=== PATIENT | male | born 1990 | race Two or more races ===

== ENCOUNTER → 2024-08-07 | Outpatient (CLI) | payer OTHER, SELFPAY ==
--- NOTE | 2024-08-07 09:56 | XR_ITS ---
Examination: Bilateral wrists 6 views TECHNIQUE: AP oblique lateral each wrist total 6 views Date and time of exam: August 07, 2024 1038 hours INDICATIONS: Bilateral wrist pain 6 years FINDINGS: Adequate bone density No fracture or dislocation involving either wrist Bilateral mild narrowing radiocarpal joints Bilateral early osteoarthritis first carpometacarpal joints No avascular necrosis IMPRESSION: Mild osteoarthritis bilaterally
--- NOTE | 2024-08-07 09:57 | XR_ITS ---
Examination: Bilateral hands, 6 views. Technique: AP, Oblique, Lateral each hand total 6 views Date and time of exam: March 07, 2024 1038 hours INDICATIONS: Bilateral hand pain beginning 6 years ago Findings: Mild narrowing radiocarpal joints bilaterally Mild bilateral osteoarthritis first carpometacarpal joints No fracture or dislocation involving either hand or wrist No cortical bone destruction or erosive arthritis Minimal osteoarthritis distal interphalangeal joints second through fifth digits bilaterally IMPRESSION: Mild osteoarthritis
== END | disposition home or self-care (01) ==
PROVIDERS: PCP Nurse Practitioner Family
DX: M19.032 Primary osteoarthritis, left wrist (principal); M19.031 Primary osteoarthritis, right wrist; M19.042 Primary osteoarthritis, left hand; M19.041 Primary osteoarthritis, right hand
CPT/HCPCS: 73110; 73130

== ENCOUNTER → 2024-09-22 | Outpatient (CLI) | payer OTHER, SELFPAY ==
[2024-09-22 10:04] LABS: Basophils % (Auto) 0 % (0-2.5); Eosinophils # (Auto) 0.1 Thou/mm3 (0.0-0.5); Eosinophils % (Auto) 2 % (0-10); Hematocrit 43.2 % (41.0-53.0); Hemoglobin 14.3 g/dL (13.5-16.0); Immature Granulocytes % (Auto) 0 % (0-0); Immature Granulocytes Auto 0.01 Thou/mm3 (0.00-0.00); Lymphocytes # (Auto) 1.7 Thou/mm3 (1.0-4.8); Lymphocytes % (Auto) 29 % (10-50); Mean Corpuscular HGB Conc 33.1 g/dl (31.0-37.0); Mean Corpuscular Hemoglobin 29.9 pg (25.0-35.0); Mean Corpuscular Volume 90 fL (80-100); Monocytes # (Auto) 0.4 Thou/mm3 (0.0-0.8); Monocytes % (Auto) 6 % (0-12); Neutrophils # (Auto) 3.6 Thou/mm3 (1.8-7.7); Neutrophils % (Auto) 62 % (37-80); Nucleated Red Blood Cell % 0 /100 WBC (0); Platelet Count 249 Thou/mm3 (140-440); RDW Standard Deviation 41.9 fL (35.1-43.9); Red Blood Count 4.78 Miln/mm3 (4.50-5.90); White Blood Count 5.8 Thou/mm3 (3.8-10.6)
[2024-09-22 10:14] LABS: Glucose Estimated Average 105 mg/dL (80-131); Hemoglobin A1C 5.3 % Hgb (4.8-6.0)
[2024-09-22 11:22] LABS: Alanine Aminotransferase 24 U/L (10-49); Albumin, Serum 4.5 gm/dL (3.5-5.0); Albumin/Globulin Ratio 1.8 (1.2-2.2); Alkaline Phosphatase 90 U/L (46-116); Anion Gap 8 (7-16); Aspartate Amino Transferase 13 U/L (0-34); BUN/Creatinine Ratio 18 Ratio (12-20); Bilirubin,Total 0.7 mg/dL (0.3-1.2); Blood Urea Nitrogen 14 mg/dL (9-23); Calcium 9.4 mg/dL (8.3-10.6); Calcium (Corrected) 9.4 mg/dL (8.5-10.1); Carbon Dioxide 26.1 mMol/L (20.0-31.0); Cardiac Risk Estimate 4.6 RATIO (4.0-6.7); Chloride 104 mMol/L (98-107); Cholesterol 231 mg/dL (132-200); Creatinine (Component) 0.8 mg/dL (0.6-1.3); Free T4 (Free Thyroxine) 1.37 ng/dL (0.89-1.76); Globulin 2.5 gm/dL (2.3-3.5); Glucose 95 mg/dL (74-106); HDL Cholesterol 50 mg/dL (40-60); LDL Cholesterol,Calculated 160 mg/dL (0-130); Osmolality,Calculated 276 (275-295); Potassium 4.4 mMol/L (3.4-5.1); Sodium 138 mMol/L (136-145); Thyroid Stimulating Hormone 1.41 uIU/mL (0.55-4.78); Triglycerides 105 mg/dL (30-150); eGFR > 60 See Note
[2024-09-22 12:03] LABS: Hepatitis C Antibody Non Reactive (Non React)
== END | disposition home or self-care (01) ==
PROVIDERS: PCP Nurse Practitioner Family; Referring Provider Nurse Practitioner Family; Visit Provider Nurse Practitioner Family
DX: E78.5 Hyperlipidemia, unspecified (principal); Z13.1 Encounter for screening for diabetes mellitus; Z13.29 Encounter for screening for other suspected endocrine disorder; Z11.59 Encounter for screening for other viral diseases
CPT/HCPCS: 36415; 80053; 80061; 83036; 84439; 84443; 85025; 86803

== ENCOUNTER 2024-10-23 08:30 | Outpatient (RCR) | payer OTHER, SELFPAY ==
--- NOTE | 2024-10-15 15:02 | PT.OIERPT ---
PT OP Initial Eval Patient Information Outpatient Physical Therapy Treatment Date: 10/15/24 Visit Reasons: Bilateral carpal tunnel syndrome Medical Diagnosis: Bilateral carpal tunnel Treatment Dx #1: Right Hand Pain Treatment Dx #2: Left Hand Pain Start of Care: 10/15/24 Date of Onset: 5 years ago Smoking Status Smoking Status: Never smoker Initial Assessment Subjective: Pt is a 33 y/o male reports of chronic CTS R>L since 5 years ago. Pt mentioned nerve conduction test confirmed moderate CTS on the right and mild on the left. Pt has limitation with work duties, chores, gripping, lifting, and performing recreational activities. Pt stated that night splint and cortisone shots has helped so far. 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 Pt will attempt physical therapy if pain persist Pt will be refer back to provider for further consultation. 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
--- NOTE | 2024-10-21 09:07 | PT.ODAYNRPT ---
PT Outpatient Daily Note OP Daily Note Outpatient Physical Therapy Treatment Date: 10/21/24 Visit Reasons: Bilateral carpal tunnel syndrome Subjective: Pt reports worsening symptoms with activity. Objective: Please see flow sheet for ther ex list. Assessment: Pt demonstrates aggravating symptoms towards the end of session, requires short rest breaks in between reps. Plan: Continue with pOC. Length of Time (minutes) of Treatment: 30 Minutes Procedure Charges Therapeutic Exercise 30 minutes: Yes
--- NOTE | 2024-10-23 09:03 | PT.ODAYNRPT ---
PT Outpatient Daily Note OP Daily Note Outpatient Physical Therapy Treatment Date: 10/23/24 Visit Reasons: Bilateral carpal tunnel syndrome Subjective: No new concerns or complaints. Objective: Please see flow sheet for ther ex list. Assessment: Pt responds to light hand ther ex with aggravating symptoms. Plan: Continue with POC. Length of Time (minutes) of Treatment: 30 Minutes Procedure Charges Therapeutic Exercise 30 minutes: Yes
== END 2024-10-24 23:59 | disposition home or self-care (01) ==
LOC: CPTX 08:30
PROVIDERS: PCP Family Medicine
DX: M79.641 Pain in right hand (principal); M79.642 Pain in left hand; R53.1 Weakness; G56.03 Carpal tunnel syndrome, bilateral upper limbs
CPT/HCPCS: 97110; 97162

== ENCOUNTER 2024-11-11 10:00 | Outpatient (RCR) | payer OTHER, SELFPAY ==
--- NOTE | 2024-10-28 10:48 | PT.ODAYNRPT ---
PT Outpatient Daily Note OP Daily Note Outpatient Physical Therapy Treatment Date: 10/28/24 Visit Reasons: bilateral carpal tunnel Subjective: Pt reports B hand pain and symptoms present and continue to be aggravated with activity. Objective: Please see flow sheet for ther ex list. Assessment: Pt continues to demonstrate poor activity tolerance due to worsening symptoms with light ther ex performed. Plan: Continue with pOC. Length of Time (minutes) of Treatment: 30 Minutes Procedure Charges Therapeutic Exercise 30 minutes: Yes
--- NOTE | 2024-11-11 10:36 | PT.ODAYNRPT ---
PT Outpatient Daily Note OP Daily Note Outpatient Physical Therapy Treatment Date: 11/11/24 Visit Reasons: bilateral carpal tunnel Subjective: No changes to report at this time, pt continues to have increase numbing/tingling weakness with activity. Objective: Please see flow sheet for ther ex list. Assessment: Poor progress in clinic, pt continues to have aggravating symptoms with light interventions. Plan: Continue with POC. Length of Time (minutes) of Treatment: 30 Minutes Procedure Charges Therapeutic Exercise 30 minutes: Yes
== END 2024-11-24 23:59 | disposition home or self-care (01) ==
LOC: CPTX 10:00
DX: M79.642 Pain in left hand (principal); M79.641 Pain in right hand; R53.1 Weakness; G56.03 Carpal tunnel syndrome, bilateral upper limbs
CPT/HCPCS: 97110

== ENCOUNTER 2024-11-16 03:02 | Emergency (ER) | payer OTHER, SELFPAY ==
[2024-11-16 03:03] VITALS: BMI 35.9
[2024-11-16 03:13] VITALS: BP 146/86; PULSE 87; RESP 20; TEMP 36.9; O2SAT 99
--- NOTE | 2024-11-16 03:19 | EDNOTE_ITS ---
ED Male Genitalurinary RME/HPI General Chief complaint: Urogenital-Male Stated complaint: URINE ORANGE Time Seen by Provider: 11/16/24 03:19 Arrival date/time: 11/16/24 03:02 RME / HPI RME / HPI Narrative: This section includes all my notes and documentations, including HPI, PE, and ED course. Sebastian Elias MD HPI: 33-year-old male here to be evaluated with a couple day history of very dark urine with possible orange hue. The day before yesterday, he had subjective fever and chills. No cough or congestion. Was evaluated by telehealth medical provider. He was diagnosed with influenza with normal diagnostic tests. Was prescribed Tamiflu and he started taking Tamiflu. Currently, no fever or chills. No cough or congestion. No back pain or flank pain or abdominal pain. No dysuria or urinary frequency. No other complaints. ROS: All negative except as documented in HPI. Physical Exam: General: Alert and oriented. No acute distress when remaining still. Eyes: Conjunctivae and lids clear. ENT: No nasal congestion. Neck: Supple. Heart: RRR. Lungs: No respiratory distress. Good air movement. No rhonchi, wheezing, rales. Abdomen: Soft and nontender. Normal bowel sounds. No distension. No rebound or guarding. Back: No CVA tenderness. Skin: Warm and dry. Neuro: Alert and oriented X 3. I reviewed all diagnostic test results. UA remarkable for very dark yellow color, 2+ ketones, and 2+ bilirubin. COVID/influenza negative. At this point, diagnoses include dehydration with UA with ketones and bilirubin. Recommended vigorous hydration and recheck with PCP in a week. Based on my best medical judgment, made decision no further evaluation or treatment indicated at this time. Patient understands and agrees to the discharge instructions customized and printed, see below. Discharge Instructions from Dr. Elias: 1. After evaluation, your urine shows severe dehydration. There is no microscopic blood in the urine. There is no infection in the urine. COVID and influenza negative. 2. Increase oral fluid and maintain clear urine.? If dark or yellow, increase oral fluid. 3. Some good choices are water (but not only water because it will cause electrolyte abnormalities), sports drinks like Gatorade (with less sugar content), coconut water, chicken stock, and other fluid with electrolytes (like Pedialyte). 4. See a private doctor in a week. Ask to recheck your microscopic urine. If still very dark, ask to help to make sure there is no serious underlying conditions, liver such as liver disease or blood disorder. 5. Seek immediate medical care with worsening or with any concerns. Sebastian Elias MD Related Data Previous Rx's ?Medication ?Instructions ?Recorded Promethazine Hcl/Dextromethorphan 1 tsp PO [id number] PRN COUGH OR 09/02/17 SYRUP * (PHENERGAN DM SYRUP *) CONGESTION #150 mL Allergies Allergy/AdvReac Type Severity Reaction Status Date / Time NKA* Allergy Uncoded 09/02/17 12:39 Course Quality Measures none Orders Category Date Time Status Bedside COVID-19 Antigen Test NOW Care 11/16/24 03:19 Completed Bedside Influenza A&B Antigen Test NOW Care 11/16/24 03:19 Completed UA, C/S IF [Urinalysis, C/S if Indicated] Stat Lab 11/16/24 03:20 Completed Vital Signs Vital signs: Vital Signs Temperature 98.5 F 11/16/24 03:13 Pulse Rate 87 11/16/24 03:13 Respiratory Rate 20 11/16/24 03:13 Blood Pressure 146/86 H 11/16/24 03:13 Pulse Oximetry (%) 99 11/16/24 03:13 Oxygen Delivery Method Room Air 11/16/24 03:13 Urogenital - Male Patient data External records reviewed:: [facility] previous records Clinical information provided by:: patient Social determinants that could affect healthcare access:: none Patient has the following chronic illnesses:: GERD How is presenting disease/condition affected by chronic disease/condition?: uneffected by Evaluation data The following diagnostics were reviewed and interpreted by me:: lab results Lab and/or radiology exams considered but not ordered:: None Interpretation Summary: UA remarkable for ketones and bilirubin Medications / Prescriptions Medications or Prescriptions considered but not ordered:: None Medication administrations:: None Consultations Consultation(s) initiated? (list below): No Diagnosis Urogenital Male Differential Diagnosis: urinary tract infection, acute retention of urine and other (Pyelonephritis, ureteral stone, hematuria) Most likely diagnosis given after review of the tests above:: Dehydration with ketones and bilirubin in urine Admission Indicated Admission indicated?: not indicated Explain why admission is indicated or not indicated:: There was no indication for admission. Admission Request Was there a request for admission?: No Disposition Plan Disposition Plan: Discharge Discharge Attestation Discharge Attestation: The patient and all family members were given an opportunity to ask questions and understood the discharge instructions. Discharge instructions specifically effects, indications for sooner follow up or return to the emergency department, and the expected course of current diagnosis. Patient condition: Stable Discharge Plan Plan Patient Disposition: HOME (Self Care) Prescriptions/Referrals Prescriptions/Med Rec: No Action Promethazine Hcl/Dextromethorphan SYRUP * (PHENERGAN DM SYRUP *) 473 ML syrup 1 tsp PO [id number] PRN (Reason: COUGH OR CONGESTION) Qty: 150 0RF Referrals: Temporary Provider,ED [Physician] - In 1 week Problem List Clinical Impression: Dehydration Patient/Caregiver Discharge Instructions Discharge Activity: activity as tolerated Education Materials: ED Dehydration (Adult) Additional Instructions: Discharge Instructions from Dr. Elias: 1. After evaluation, your urine shows severe dehydration. There is no microscopic blood in the urine. There is no infection in the urine. COVID and influenza negative. 2. Increase oral fluid and maintain clear urine.? If dark or yellow, increase oral fluid. 3. Some good choices are water (but not only water because it will cause electrolyte abnormalities), sports drinks like Gatorade (with less sugar content), coconut water, chicken stock, and other fluid with electrolytes (like Pedialyte). 4. See a private doctor in a week. Ask to recheck your microscopic urine. If still very dark, ask to help to make sure there is no serious underlying conditions, liver such as liver disease or blood disorder. 5. Seek immediate medical care with worsening or with any concerns. Print Language: Russian Stand Alone Forms: [employer] Award Info., Patient Portal Info Letter
[2024-11-16 03:33] LABS: Collection Type, Urine Clean Catch; RBC,Urine 0 /hpf (0-3); WBC,Urine 0 /hpf (0-5)
[2024-11-16 03:40] LABS: Bacteria,Urine Rare; Bilirubin,Urine 2+ (Negative); Blood,Urine Negative (Negative); Clarity,Urine Turbid (Clear/Hazy); Color,Urine Drk-Yellow (Lt Yel-Yel); Culture Indicated,Urine Not Indicated; Glucose, Urine Negative (Negative); Ketones,Urine 2+ (Negative); Leukocyte Esterase,Urine Negative (Negative); Nitrite,Urine Negative (Negative); PH,Urine 7.5 (5.0-7.0); Protein,Urine Trace (Neg - Trace); Specific Gravity,Urine 1.023 (1.001-1.035); Squamous Epithelial Cell,Urine 4 /hpf (0-5)
[2024-11-16 04:29] VITALS: RESP 18
== END 2024-11-16 04:29 | disposition home or self-care (01) ==
PROVIDERS: Emergency Provider Emergency Medicine; PCP Nurse Practitioner Family
DX: E86.0 Dehydration (principal)
CPT/HCPCS: 81001; 87400; 87811; 99283

== ENCOUNTER → 2024-11-17 | Outpatient (CLI) | payer OTHER, SELFPAY ==
[2024-11-17 11:58] LABS: Basophils % (Auto) 1 % (0-2.5); Eosinophils # (Auto) 0.1 Thou/mm3 (0.0-0.5); Eosinophils % (Auto) 4 % (0-10); Hematocrit 43.7 % (41.0-53.0); Immature Granulocytes % (Auto) 0 % (0-0); Immature Granulocytes Auto 0.01 Thou/mm3 (0.00-0.00); Lymphocytes # (Auto) 1.2 Thou/mm3 (1.0-4.8); Lymphocytes % (Auto) 36 % (10-50); Mean Corpuscular HGB Conc 34.3 g/dl (31.0-37.0); Mean Corpuscular Hemoglobin 30.3 pg (25.0-35.0); Mean Corpuscular Volume 88 fL (80-100); Monocytes # (Auto) 0.3 Thou/mm3 (0.0-0.8); Monocytes % (Auto) 8 % (0-12); Neutrophils # (Auto) 1.7 Thou/mm3 (1.8-7.7); Neutrophils % (Auto) 51 % (37-80); Nucleated Red Blood Cell % 0 /100 WBC (0); Platelet Count 218 Thou/mm3 (140-440); RDW Standard Deviation 40.9 fL (35.1-43.9); Red Blood Count 4.95 Miln/mm3 (4.50-5.90); White Blood Count 3.4 Thou/mm3 (3.8-10.6)
[2024-11-17 12:12] LABS: Alanine Aminotransferase 157 U/L (10-49); Albumin, Serum 4.3 gm/dL (3.5-5.0); Albumin/Globulin Ratio 1.7 (1.2-2.2); Alkaline Phosphatase 200 U/L (46-116); Anion Gap 11 (7-16); Aspartate Amino Transferase 70 U/L (0-34); BUN/Creatinine Ratio 13 Ratio (12-20); Blood Urea Nitrogen 10 mg/dL (9-23); Carbon Dioxide 24.3 mMol/L (20.0-31.0); Chloride 106 mMol/L (98-107); Creatinine (Component) 0.8 mg/dL (0.6-1.3); Globulin 2.6 gm/dL (2.3-3.5); Glucose 106 mg/dL (74-106); Osmolality,Calculated 280 (275-295); Sodium 141 mMol/L (136-145); Total Protein 6.9 gm/dL (5.7-8.2); eGFR > 60 See Note
== END | disposition home or self-care (01) ==
LOC: COPL 10:56
PROVIDERS: PCP Family Medicine; Referring Provider Nurse Practitioner Family; Visit Provider Nurse Practitioner Family
DX: E78.5 Hyperlipidemia, unspecified (principal)
CPT/HCPCS: 36415; 80053; 85025

== ENCOUNTER → 2024-11-20 | Outpatient (CLI) | payer OTHER, SELFPAY ==
--- NOTE | 2024-11-20 08:26 | XR_ITS ---
Examination: Abdomen sonogram, complete Date and time of exam: November 20, 2024 0912 hours INDICATIONS: Elevated liver function tests on laboratory examination November 17, 2024. Technique: Multiple real-time grayscale transabdominal sonographic images of the abdomen have been obtained. Findings: Normal gallbladder. Normal common bile duct Pancreatic head 2.0 cm Aorta not enlarged Liver 14.3 cm mildly irregular contour Normal hepatopedal portal venous flow. Patent IVC. Right kidney 10.6 cm cortex 2.4 cm Left kidney 11.9 cm cortex 2.0 cm Moderate renal parenchymal scar formation Spleen 10.3 cm IMPRESSION: Normal gallbladder Negative for hepatomegaly Moderate bilateral renal parenchymal scar formation, no hydronephrosis
== END | disposition home or self-care (01) ==
LOC: CDIM 08:17
PROVIDERS: PCP Family Medicine; Referring Provider Nurse Practitioner Family; Visit Provider Nurse Practitioner Family
DX: N28.89 Other specified disorders of kidney and ureter (principal)
CPT/HCPCS: 76700

== ENCOUNTER → 2024-11-24 | Outpatient (CLI) | payer OTHER, SELFPAY ==
[2024-11-24 10:41] LABS: Misc Send Out* See Sep Rpt
[2024-11-24 11:03] LABS: Collection Type, Urine Clean Catch
[2024-11-24 11:53] LABS: Prothrombin Time 10.6 Seconds (9.0-12.2)
[2024-11-24 11:57] LABS: Basophils % (Auto) 1 % (0-2.5); Eosinophils # (Auto) 0.1 Thou/mm3 (0.0-0.5); Eosinophils % (Auto) 2 % (0-10); Immature Granulocytes % (Auto) 1 % (0-0); Immature Granulocytes Auto 0.05 Thou/mm3 (0.00-0.00); Lymphocytes # (Auto) 2.1 Thou/mm3 (1.0-4.8); Lymphocytes % (Auto) 44 % (10-50); Mean Corpuscular HGB Conc 33.3 g/dl (31.0-37.0); Mean Corpuscular Hemoglobin 29.8 pg (25.0-35.0); Mean Corpuscular Volume 89 fL (80-100); Monocytes # (Auto) 0.3 Thou/mm3 (0.0-0.8); Monocytes % (Auto) 6 % (0-12); Neutrophils # (Auto) 2.3 Thou/mm3 (1.8-7.7); Neutrophils % (Auto) 47 % (37-80); Nucleated Red Blood Cell % 0 /100 WBC (0); Platelet Count 302 Thou/mm3 (140-440); RDW Standard Deviation 41.2 fL (35.1-43.9); Red Blood Count 5.37 Miln/mm3 (4.50-5.90); White Blood Count 4.9 Thou/mm3 (3.8-10.6)
[2024-11-24 11:59] LABS: Bilirubin,Urine Negative (Negative); Blood,Urine Negative (Negative); Clarity,Urine Clear (Clear/Hazy); Color,Urine Yellow (Lt Yel-Yel); Creatinine MALB Rnd Ur 104 mg/dL (30-125); Glucose, Urine Negative (Negative); Ketones,Urine Negative (Negative); Leukocyte Esterase,Urine Negative (Negative); Microalbumin, Random Urine < 3 mg/L (0-300); Nitrite,Urine Negative (Negative); Protein,Urine Negative (Neg - Trace); RBC,Urine 2 /hpf (0-3); Specific Gravity,Urine 1.017 (1.001-1.035); Squamous Epithelial Cell,Urine 1 /hpf (0-5); Urobilinogen,Urine Negative mg/dL (0.0-1.0); WBC,Urine 2 /hpf (0-5)
[2024-11-24 12:03] LABS: Alanine Aminotransferase 261 U/L (10-49); Albumin, Serum 4.7 gm/dL (3.5-5.0); Albumin/Globulin Ratio 1.6 (1.2-2.2); Alkaline Phosphatase 193 U/L (46-116); Amylase 69 U/L (30-118); Anion Gap 10 (7-16); Aspartate Amino Transferase 94 U/L (0-34); BUN/Creatinine Ratio 16 Ratio (12-20); Bilirubin,Total 1.5 mg/dL (0.3-1.2); Blood Urea Nitrogen 14 mg/dL (9-23); Carbon Dioxide 25.3 mMol/L (20.0-31.0); Cardiac Risk Estimate 6.8 RATIO (4.0-6.7); Chloride 106 mMol/L (98-107); Cholesterol 266 mg/dL (132-200); Creatinine (Component) 0.9 mg/dL (0.6-1.3); Globulin 2.9 gm/dL (2.3-3.5); Glucose 91 mg/dL (74-106); HDL Cholesterol 39 mg/dL (40-60); LDL Cholesterol,Calculated 183 mg/dL (0-130); Lipase 35 U/L (12-53); Osmolality,Calculated 281 (275-295); Potassium 4.2 mMol/L (3.4-5.1); Sodium 141 mMol/L (136-145); Total Protein 7.6 gm/dL (5.7-8.2); Triglycerides 220 mg/dL (30-150); eGFR > 60 See Note
[2024-11-24 13:01] LABS: Hepatitis A Antibody IgM Non Reactive (Non React); Hepatitis B Core Antibody IgM Non Reactive (Non React); Hepatitis B Surface Antigen Non Reactive (Non React); Hepatitis C Antibody Non Reactive (Non React)
[2024-11-29 14:32] LABS: HCV RNA, PCR <15 NOT DETECTED IU/mL
[2024-12-01 07:09] LABS: Direct LDL* 178 mg/dL (<100); Gamma Glutamyl Transpeptidase* 334 U/L (3-90); HCV RNA, PCR Log IU <1.18 NOT DETECTED Log IU/mL; HIV Ag/Ab, 4th Gen NON-REACTIVE
== END | disposition home or self-care (01) ==
PROVIDERS: PCP Family Medicine; Referring Provider Nurse Practitioner Family; Visit Provider Nurse Practitioner Family
DX: R74.8 Abnormal levels of other serum enzymes (principal); Z11.59 Encounter for screening for other viral diseases; Z11.3 Encounter for screening for infections with a predominantly sexual mode of transmission; E78.5 Hyperlipidemia, unspecified; R82.2 Biliuria
CPT/HCPCS: 36415; 80053; 80061; 80074; 81001; 82043; 82150; 82570; 82977; 83690; 83721; 85025; 85610; 85730; 87086; 87389; 87522

== ENCOUNTER → 2024-12-01 | Outpatient (CLI) | payer OTHER, SELFPAY ==
--- NOTE | 2024-12-01 16:35 | XR_ITS ---
Examination: Abdomen sonogram, Limited Date and time of exam: December 01, 2024 1640 hrs. Indications: Epigastric pain elevated liver enzymes on left are examination 4 weeks ago Technique: Real-time do scale transabdominal sonographic images of the upper abdomen obtained. Findings: Contracted gallbladder No gallstones Gallbladder wall 0.6 cm Common bile duct 0.3 cm Pancreatic head 2.4 cm Liver 13.1 by infiltration Normal hepatopedal portal venous flow Patent IVC Impression: Recommend repeating the gallbladder study with fasting
== END | disposition home or self-care (01) ==
PROVIDERS: PCP Nurse Practitioner Family; Referring Provider Nurse Practitioner Family; Visit Provider Nurse Practitioner Family
DX: R74.01 Elevation of levels of liver transaminase levels (principal)
CPT/HCPCS: 76705

== ENCOUNTER → 2024-12-04 | Outpatient (CLI) | payer OTHER, SELFPAY ==
--- NOTE | 2024-12-04 08:55 | XR_ITS ---
Examination: Abdomen sonogram, Limited Date and time of exam: December 04, 2024 0932 hrs. Indications: Elevated liver function tests on laboratory examination November 24, 2024, contracted gallbladder on sonogram December 01, 2024 Technique: Real-time do scale transabdominal sonographic images of the upper abdomen obtained. Findings: Normal gallbladder Normal common bile duct 0.3 cm Pancreatic head 2.7 cm Liver 14.5 cm fatty infiltration no focal liver lesions Normal hepatopedal portal venous flow Patent IVC Impression: Normal gallbladder Fatty liver
== END | disposition home or self-care (01) ==
PROVIDERS: PCP Nurse Practitioner Family; Referring Provider Nurse Practitioner Family; Visit Provider Nurse Practitioner Family
DX: K76.0 Fatty (change of) liver, not elsewhere classified (principal)
CPT/HCPCS: 76705

== ENCOUNTER → 2024-12-16 | Outpatient (CLI) | payer OTHER, SELFPAY ==
[2024-12-16 10:22] LABS: Ferritin 138 ng/mL (10.5-307.3); Iron 95 mcg/dL (65-175); Percent Iron Saturation 29 % (20-55); Total Iron Binding Capacity 324 mcg/dL (250-425); Unsaturated Iron Binding 229 (225-295)
[2024-12-16 10:26] LABS: Alanine Aminotransferase 30 U/L (10-49); Albumin, Serum 4.4 gm/dL (3.5-5.0); Alkaline Phosphatase 110 U/L (46-116); Aspartate Amino Transferase 19 U/L (0-34); Bilirubin,Direct 0.2 mg/dL (0.0-0.3); Bilirubin,Total 0.5 mg/dL (0.3-1.2); Total Protein 7.2 gm/dL (5.7-8.2)
[2024-12-16 10:37] LABS: Prothrombin Time 10.7 Seconds (9.0-12.2)
[2024-12-16 10:57] LABS: Hepatitis A Antibody IgM Non Reactive (Non React); Hepatitis B Core Antibody IgM Non Reactive (Non React); Hepatitis B Surface Antigen Non Reactive (Non React); Hepatitis C Antibody Non Reactive (Non React)
[2024-12-19 07:00] LABS: ACTH, Plasma* 20 pg/mL (6-50)
[2024-12-24 06:59] LABS: ANA Screen, IFA POSITIVE (NEGATIVE); Alpha-1-Antitrypsin* 137 mg/dL (83-199); Ceruloplasmin* 25 mg/dL (14-30); Copper* 111 mcg/dL (70-175); Mitochondrial Ab NEGATIVE (NEGATIVE)
== END | disposition home or self-care (01) ==
PROVIDERS: PCP Family Medicine; Referring Provider Specialist; Visit Provider Specialist
DX: R94.5 Abnormal results of liver function studies (principal); R14.0 Abdominal distension (gaseous); R10.30 Lower abdominal pain, unspecified
CPT/HCPCS: 36415; 80074; 80076; 82024; 82103; 82105; 82390; 82525; 82728; 83540; 83550; 85610; 86038; 86255

== ENCOUNTER → 2024-12-25 | Outpatient (CLI) | payer OTHER, SELFPAY ==
[2024-12-25 13:40] LABS: Misc Send Out* See Sep Rpt
[2024-12-25 14:08] LABS: Collection Type, Urine Clean Catch
[2024-12-25 14:22] LABS: Basophils % (Auto) 1 % (0-2.5); Eosinophils # (Auto) 0.1 Thou/mm3 (0.0-0.5); Eosinophils % (Auto) 1 % (0-10); Hematocrit 41.8 % (41.0-53.0); Hemoglobin 14.8 g/dL (13.5-16.0); Immature Granulocytes % (Auto) 0 % (0-0); Immature Granulocytes Auto 0.02 Thou/mm3 (0.00-0.00); Lymphocytes # (Auto) 1.5 Thou/mm3 (1.0-4.8); Lymphocytes % (Auto) 27 % (10-50); Mean Corpuscular HGB Conc 35.4 g/dl (31.0-37.0); Mean Corpuscular Hemoglobin 30.3 pg (25.0-35.0); Mean Corpuscular Volume 86 fL (80-100); Monocytes # (Auto) 0.4 Thou/mm3 (0.0-0.8); Monocytes % (Auto) 6 % (0-12); Neutrophils # (Auto) 3.7 Thou/mm3 (1.8-7.7); Neutrophils % (Auto) 65 % (37-80); Nucleated Red Blood Cell % 0 /100 WBC (0); Platelet Count 245 Thou/mm3 (140-440); RDW Standard Deviation 37.8 fL (35.1-43.9); Red Blood Count 4.89 Miln/mm3 (4.50-5.90); White Blood Count 5.7 Thou/mm3 (3.8-10.6)
[2024-12-25 14:23] LABS: Bilirubin,Urine Negative (Negative); Blood,Urine Negative (Negative); Clarity,Urine Clear (Clear/Hazy); Color,Urine Lt-Yellow (Lt Yel-Yel); Glucose, Urine Negative (Negative); Ketones,Urine Negative (Negative); Leukocyte Esterase,Urine Negative (Negative); Nitrite,Urine Negative (Negative); Protein,Urine Negative (Neg - Trace); RBC,Urine 2 /hpf (0-3); Specific Gravity,Urine 1.023 (1.001-1.035); Squamous Epithelial Cell,Urine < 1 /hpf (0-5); Urobilinogen,Urine Negative mg/dL (0.0-1.0); WBC,Urine 1 /hpf (0-5)
[2024-12-25 14:45] LABS: Alanine Aminotransferase 22 U/L (10-49); Albumin, Serum 4.4 gm/dL (3.5-5.0); Albumin/Globulin Ratio 1.6 (1.2-2.2); Alkaline Phosphatase 99 U/L (46-116); Amylase 64 U/L (30-118); Anion Gap 11 (7-16); Aspartate Amino Transferase 19 U/L (0-34); BUN/Creatinine Ratio 16 Ratio (12-20); Bilirubin,Total 0.7 mg/dL (0.3-1.2); Blood Urea Nitrogen 16 mg/dL (9-23); Calcium 9.4 mg/dL (8.3-10.6); Calcium (Corrected) 9.4 mg/dL (8.5-10.1); Carbon Dioxide 24.2 mMol/L (20.0-31.0); Chloride 106 mMol/L (98-107); Globulin 2.8 gm/dL (2.3-3.5); Glucose 111 mg/dL (74-106); Lipase 34 U/L (12-53); Osmolality,Calculated 283 (275-295); Potassium 3.9 mMol/L (3.4-5.1); Sodium 141 mMol/L (136-145); Total Protein 7.2 gm/dL (5.7-8.2); eGFR > 60 See Note
[2024-12-25 15:47] LABS: RA Screen Negative (Negative)
[2025-01-02 13:49] LABS: Sjogren's antibody (SS-A) <1.0 NEG AI (<1.0 NEGATIVE); Sm Antibody <1.0 NEG AI (<1.0 NEGATIVE)
[2025-01-05 07:01] LABS: ANA Screen, IFA POSITIVE (NEGATIVE); Actin Antibody (IgG)* <20 U; Complement Component C3* 138 mg/dL (82-185); Complement Component C4c* 35 mg/dL (15-53); DNA (ds) Antibody* 1 IU/mL; Gastric Parietal Cell Ab* <20.0 U; Mitochondrial Ab NEGATIVE (NEGATIVE); Myocardial Ab, IF NEGATIVE (NEGATIVE); Scl-70 Antibody* <1.0 NEG AI (<1.0 NEGATIVE); Sjogren's Antibody (SS-B) <1.0 NEG AI (<1.0 NEGATIVE); Sm/RNP Antibody <1.0 NEG AI (<1.0 NEGATIVE); Striated Muscle Ab NEGATIVE (NEGATIVE); Thyroid Peroxidase Antibodies* <1 IU/mL (<9)
== END | disposition home or self-care (01) ==
LOC: COPL 13:20
PROVIDERS: PCP Family Medicine; Referring Provider Specialist; Visit Provider Specialist
DX: R10.9 Unspecified abdominal pain (principal); R76.0 Raised antibody titer
CPT/HCPCS: 36415; 80053; 81001; 82150; 83516; 83690; 85025; 86015; 86038; 86160; 86225; 86235; 86255; 86376; 86430

== ENCOUNTER → 2024-12-26 | Outpatient (CLI) | payer OTHER, SELFPAY ==
--- NOTE | 2024-12-26 08:56 | XR_ITS ---
Examination: Abdomen AP single view Technique: AP portable supine abdomen, single view Exam date and time: December 26, 2024 0914 hours INDICATIONS: Upper abdominal pain beginning one month ago. FINDINGS: Moderate stool throughout the colon. No obstruction. No free air. Mild to moderate narrowing hip joints IMPRESSION: Moderate stool throughout the colon
== END | disposition home or self-care (01) ==
LOC: CDIM 08:49
PROVIDERS: PCP Nurse Practitioner Family; Referring Provider Specialist; Visit Provider Specialist
DX: K59.00 Constipation, unspecified (principal)
CPT/HCPCS: 74018

== ENCOUNTER → 2025-02-13 | Outpatient (CLI) | payer OTHER, SELFPAY ==
--- NOTE | 2025-02-13 14:30 | XR_ITS ---
Examination: CT abdomen with intravenous contrast CT pelvis with intravenous contrast 2-D coronal reconstructions 2-D sagittal reconstructions Date and time of exam:February 13, 2025 1441 hours INDICATIONS: Mid abdominal pain beginning 3 months ago. CTDI: vol (mGy) 23.5 DLP: (mGycm) 921 Technique: Multiple axial sections of the abdomen and pelvis have been obtained. 64 slice high-resolution scanner used. 3 mm axial sections have been obtained, post intravenous injection 60 cc [id number] 2-D sagittal, coronal reconstructions obtained. Low dose protocols were performed. One or more of the following dose reduction techniques were used; automated exposure control, adjustment of the mA and/or KV according to patient size, use of iterative reconstruction technique. Findings: No focal splenic or liver lesion No gallstones. No pancreatic or adrenal mass. No renal or ureteral calculi, no hydronephrosis Aorta normal size Normal appendix No bowel obstruction No nonspecific colitis or enteritis pattern, scattered colonic diverticulosis no diverticulitis Prostate is not enlarged IMPRESSION: No acute process in the abdomen or pelvis
== END | disposition home or self-care (01) ==
LOC: CCTX 14:02
PROVIDERS: PCP Nurse Practitioner Family; Referring Provider Specialist; Visit Provider Specialist
DX: R14.0 Abdominal distension (gaseous) (principal); R10.32 Left lower quadrant pain; R10.31 Right lower quadrant pain
CPT/HCPCS: 74177; A4649; Q9963; Q9967

== ENCOUNTER 2025-04-06 11:25 | Day surgery (SDC) | payer OTHER, SELFPAY ==
[2025-04-03 14:19] VITALS: BMI 34.5
[2025-04-06] VITALS (11 sets, daily range): BP systolic 128–160; BP diastolic 73–95; PULSE 62–87; RESP 13–25; TEMP 36.5–36.9; O2SAT 96–100; BMI 34.0
[2025-04-06] MEDS: BENZOCAINE 20% (Hurricaine) SPRAY 1 DOSE TOP (13:20)
[2025-04-06] MEDS: SODIUM CHLORIDE 0.9% 500 ML 500 ML 20 ML IV (13:20)
[2025-04-06] MEDS: MIDAZOLAM INJ 1 MG/ML VIAL 2 ML (ASD USE ONLY) 2 MG IVP (13:38)
[2025-04-06] MEDS: fentaNYL CIT INJ 50 mCg/ML AMP 2ML (ASD USE ONLY) IVP (13:38)
== END 2025-04-06 14:32 | disposition home or self-care (01) ==
PROVIDERS: PCP Nurse Practitioner Family; Referring Provider Specialist; Visit Provider Specialist
PROC: 0DBE8ZX Excision of Large Intestine, Via Natural or Artificial Opening Endoscopic, Diagnostic (ICD-10-PCS; CPT 45380; principal; 2025-04-06 08:30)
PROC: (CPT 43239; 2025-04-06 08:30)
DX: K63.89 Other specified diseases of intestine (principal); K62.89 Other specified diseases of anus and rectum; K64.9 Unspecified hemorrhoids; R19.4 Change in bowel habit; R10.30 Lower abdominal pain, unspecified; R94.5 Abnormal results of liver function studies
CPT/HCPCS: 45380; J1200; J2250; J3010; J7999; A9270